=== PATIENT | female | born 1975 | race Caucasian/White ===

== ENCOUNTER 2018-06-12 18:14 | Emergency (ER) | payer SELFPAY ==
[2018-06-12 18:16] VITALS: BP 138/79; PULSE 104; RESP 16; TEMP 36.4; O2SAT 97; BMI 29.2
[2018-06-12] MEDS: Ondansetron ODT 4 MG Tablet PO (18:29)
[2018-06-12] MEDS: Lidocaine/Epi/Tetracaine 50 ML 1 APPLIC TOPICAL (18:29)
[2018-06-12] MEDS: Smz/Tmp Ds Tablet 1 TABLET PO (18:52)
[2018-06-12] MEDS: Cephalexin 250 MG Capsule 500 MG PO (18:52)
[2018-06-12] MEDS: HYDROcodone Bitartrate/Apap 5/325 Tablet PO (18:52)
--- NOTE | 2018-06-12 19:30 | ED.VISSUMM ---
- ER Visit Summary Date of Service: 06/12/18 Chief Complaint: Abscess behind right ear History of Present Illness: The patient is a 43 F with a pimple-like lesion behind her right ear and first noticed 4 days ago.'s been increasing in size. She has not been able to get any drainage from it. She does report nausea but no vomiting. No fever. Physical Examination: Vital signs unremarkable. Patient's lying in bed no acute distress. Head neck examination reveals a 2 x 4 similar abscess just posterior to the right ear. There is no involvement of the ear itself. Right TM is clear. There is no lymphangitic streaking. Test Results: [] Emergency Department Course and Treatment: Patient was given [place] and Zofran here for pain along with a dose of Bactrim and Keflex. Let was applied to the abscess. 1/2 cc of 2% lidocaine was infused. A T incision was made with a #11 blade. There is return of very scant pus. Wall of the abscess is still thick and indurated. Wound is cleansed and dressed. She will be treated with Bactrim and Keflex along with naproxen for pain. Treatment Plan: [] Disposition: Discharge Impression: Cutaneous abscess status post I&D This note was generated with [employer] dictation software. It may contain incorrect words, spelling, and punctuation that were not noted in review of the chart prior to signing ED Disposition - Plan for ED Patient: Chief Complaint: Abscess Referrals: Joel Valiente MD [Primary Care Provider] -
--- NOTE | 2018-06-12 19:31 | ED.DEP ---
ED Disposition - Plan for ED Patient: Disposition: Home or Assisted Living Chief Complaint: Abscess Instructions: ED Abscess IandD Prescriptions: Cephalexin [Keflex] 500 mg PO Q6 #40 capsule Naproxen [Naprosyn] 500 mg PO BID PRN PRN #20 tablet PRN Reason: Pain Smz/Tmp Ds [Bactrim Ds] 1 tablet PO BID #14 tablet Referrals: Joel Valiente MD [Primary Care Provider] - 1 Week
--- NOTE | 2018-06-12 19:39 | ED.RN ---
DISCHARGE INSTRUCTIONS GIVEN TO AND REVIEWED WITH PATIENT, PATIENT DENIES QUESTIONS OR CONCERNS AND VOICES UNDERSTANDING OF DISCHARGE INSTRUCTIONS. PT AMBULATES OUT OF ROOM WITHOUT DIFFICULTY.
== END 2018-06-12 19:39 | disposition home or self-care (01) ==
PROVIDERS: Emergency Provider Emergency Medicine; Family Provider Family Medicine; PCP Family Medicine
DX: L02.811 Cutaneous abscess of head [any part, except face] (principal); B96.89 Other specified bacterial agents as the cause of diseases classified elsewhere; Z72.0 Tobacco use
CPT/HCPCS: 10060; 99283